=== PATIENT | male | born 1980 | race Two or more races ===

== ENCOUNTER 2018-07-28 02:25 | Emergency (ER) | payer OTHER ==
[~2018-07-28] VITALS: Ht 180.3 cm; Wt 93.0 kg
[~2018-07-28 02:25] MED LIST: IMODIUM A-D2 MG PO; PEPCID40 MG PO; ZOFRAN4 MG PO
[2018-07-28] MEDS ORDERED: KETO10TA2 PO (05:51)
== END 2018-07-28 06:00 | disposition home or self-care (01) ==
LOC: ER 02:25
DX: M25.512 Pain in left shoulder (principal)